=== PATIENT | female | born 1945 | race Hispanic/Latino ===

== ENCOUNTER 2016-12-08 07:27 | Day surgery (SDC) | payer MEDICARE ==
[2016-11-29 11:35] VITALS: BMI 23.8
[2016-12-08] MEDS ORDERED: Propofol 10 mg/ml Inj (20 ML) ONE (08:34)
[2016-12-08 10:03] VITALS: BP 113/58; PULSE 65; RESP 18; TEMP 98; O2SAT 98
== END 2016-12-08 10:43 | disposition home or self-care (01) ==
LOC: ENDO 07:27
PROVIDERS: ATTEND Specialist
DX: Z12.11 Encounter for screening for malignant neoplasm of colon (principal); K63.5 Polyp of colon; K57.30 Diverticulosis of large intestine without perforation or abscess without bleeding; K64.8 Other hemorrhoids; I10 Essential (primary) hypertension; E78.5 Hyperlipidemia, unspecified
CPT/HCPCS: 45380; 88305; J2001; J2704; J7040